=== PATIENT | male | born 1955 | race Caucasian/White ===

== ENCOUNTER 2019-02-24 05:46 | Emergency (ER) | payer OTHER | END 2019-02-24 09:18 | disposition home or self-care (01) | LOC: ED 05:46 ==

== ENCOUNTER 2020-10-30 06:12 | Observation (INO) | payer OTHER ==
[2020-10-30] MEDS ORDERED: Dextrose 5%-NS IV Solution 1000 ML 1,000 ML IV ONE (06:33)
[2020-10-30] MEDS ORDERED: Zofran 4 MG/2 ML VIAL IV ONE (06:39)
[2020-10-30] MEDS ORDERED: Zofran 4 MG/2 ML VIAL ONE (06:40)
--- NOTE | 2020-10-30 06:54 | ERPHSYRPT ---
- History of Present Illness Source: patient, family, EMS Exam Limitations: clinical condition Patient Subjective Stated Complaint: per , pt was sitting on the side of the bed and fell, and hit the back of his head. pt's blood sugar was low 60's upon ems arrival and pt was not responding as normal. Triage Nursing Assessment: pt awake, slow to answer questions. respirations nonlabored. skin cool and moist. pupils equal and reactive. follows directions. bilat upper and lower ext strength equal and wnl. 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 but is slow to respond.) Baseline/Normal Cognition: alert oriented x 3 Current Cognition: poor alertness Baseline Gait: walks w/o assistance Associated Symptoms: confusion, loss of consciousness, seizures (Patient may be postictal secondary to suspected seizure) Hx Tetanus, Diphtheria Vaccination/Date Given: Yes Hx Influenza Vaccination/Date Given: Yes Hx Pneumococcal Vaccination/Date Given: Yes Immunizations Up to Date: Yes <ANTONIO HINDS - Last Filed: 10/30/20 06:48> <SAGE VERGARA - Last Filed: 10/30/20 09:46> - History of Present Illness Time Seen by Provider: 10/30/20 06:20 Physician History: 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 EMS arrived to find his blood sugar in the 60s they gave him an amp of D50 and rates his blood sugar to 226. However he still continues to be somewhat slow to respond although he will follow directions. He has had similar episodes in the past. does report that he had an aneurysm while he was in college and she is concerned there may be a rebleed. (ANTONIO HINDS) Allergies/Adverse Reactions: linagliptin [From Tradjenta] Allergy (Verified 10/30/20 07:02) esomeprazole [From Nexium] Adverse Reaction (Verified 10/30/20 07:02) Diarrhea metformin Adverse Reaction (Verified 10/30/20 07:02) Diarrhea omeprazole Adverse Reaction (Verified 10/30/20 07:02) Diarrhea Home Medications: Famotidine 20 mg [Pepcid 20 MG] 20 mg PO BID 02/24/19 [History] Glimepiride 4 mg [Amaryl 4 mg] 4 mg PO DAILY 02/24/19 [History] Ibuprofen/Diphenhydramine Cit [Advil Pm Caplet] 1 tab PO HS 02/24/19 [History] Insulin Glargine,Hum.rec.anlog [Toujeo Solostar] 76 units SQ DAILY 02/24/19 [History] Rosuvastatin Calcium [Crestor] 10 mg PO DAILY 02/24/19 [History] Aspirin EC 81 mg [Ecotrin 81 mg] 81 mg PO DAILY 10/30/20 [History] Lisinopril 10 mg [Zestril 10 MG] 10 mg PO DAILY 10/30/20 [History] Travel Risk - International Travel Have you traveled outside of the country in past 3 weeks: No - Coronavirus Screening Are you exhibiting any of the following symptoms?: No Close contact with a COVID-19 positive Pt in past 14-21 Days: No - Vaccine Status Have you recieved a Covid-19 vaccination: Yes Inspector 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: 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 - Vaccination Dates Date of 2cond Vaccination (if applicable): 07/2020 <ANTONIO HINDS - Last Filed: 10/30/20 06:48> - Review of Systems All Other Systems: Unable due to condition <ANTONIO HINDS - Last Filed: 10/30/20 06:48> - Past Medical History Pertinent Past Medical History: Yes Neurological History: Other ENT History: No Pertinent History Cardiac History: Hypertension Respiratory History: No Pertinent History Endocrine Medical History: Diabetes Type II Musculoskeletal History: No Pertinent History GI Medical History: No Pertinent History History: No Pertinent History Psycho-Social History: No Pertinent History Male Reproductive Disorders: No Pertinent History Other Medical History: hx of brain aneurysm in college. 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 - Social History Smoking Status: Never smoker Exposure to second hand smoke: No Drug Use: none Patient Lives Alone: No <ANTONIO HINDS - Last Filed: 10/30/20 06:48> - Thomas Coma Scale Best Eye Response (Thomas): (3) open to voice Best Verbal Response (Thomas): (4) confused conversation Best Motor Response (Thomas): (6) obeys commands Thomas Total: 13 - Physical Exam General Appearance: mild distress, lethargy Eye Exam: bilateral eye: normal inspection, PERRL, EOMI Ears, Nose, Throat Exam: normal ENT inspection, moist mucous membranes Neck Exam: normal inspection, non-tender, supple Respiratory: normal breath sounds, lungs clear, airway intact, No respiratory distress Cardiovascular: regular rate/rhythm, No edema Gastrointestinal: soft, No tenderness, No distention Back Exam: normal inspection Extremity Exam: normal inspection, normal range of motion, No pedal edema Peripheral Pulses: carotid (R): 2+, carotid (L): 2+ Mental Status: alert, depressed affect, 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, No facial droop Motor/Sensory: No pronator drift (R), No pronator drift (L), No sensory deficit Skin Exam: normal color, warm, dry SpO2 Interpretation: normal SpO2: 98 O2 Delivery: Room Air <ANTONIO HINDS - Last Filed: 10/30/20 06:48> - Nursing Vital Signs Nursing Vital Signs: Initial Vital Signs Temperature 95.6 F 10/30/20 06:15 Pulse Rate 62 10/30/20 06:15 Respiratory Rate 18 10/30/20 06:15 Blood Pressure 165/72 10/30/20 06:15 O2 Sat by Pulse Oximetry 98 10/30/20 06:15 Pain Scale Pain Intensity 0 Ordered Tests: Active Orders 24 hr Category Date Time Status EKG-ER Only STAT Care 10/30/20 06:39 Active IV Insertion STAT Care 10/30/20 06:39 Active CHEST 1 VIEW (PORTABLE) Stat Exams 10/30/20 06:40 Completed HEAD WITHOUT CONTRAST [CT] Stat Exams 10/30/20 06:46 Completed AMYLASE Stat Lab 10/30/20 06:50 Completed CBC W DIFF Stat Lab 10/30/20 06:50 Completed CK (IN-HOUSE) [CK-Creatinine Phosphokinase] Stat Lab 10/30/20 06:50 Completed CMP Stat Lab 10/30/20 06:50 Completed Lactic Acid Stat Lab 10/30/20 06:55 Completed Lactic Acid Stat Lab 10/30/20 09:02 Completed POCT GLUCOSE Stat Lab 10/30/20 06:22 Completed POCT GLUCOSE Stat Lab 10/30/20 08:22 Completed TROPONIN Q3H Lab 10/30/20 06:50 Completed TROPONIN Q3H Lab 10/30/20 09:45 Ordered TROPONIN Q3H Lab 10/30/20 12:45 Ordered TROPONIN Q3H Lab 10/30/20 15:45 Ordered TROPONIN Q3H Lab 10/30/20 18:45 Ordered UA W/RFX UR CULTURE Stat Lab 10/30/20 09:23 Completed Transfer Order Routine Transfer 10/30/20 Ordered Medication Summary Generic Name Dose Route Start Last Admin Trade Name Freq PRN Reason Stop Dose Admin Dextrose/Sodium Chloride 1,000 mls @ 100 mls/hr 10/30/20 07:00 10/30/20 06:49 Dextrose 5%-Ns Iv Solution 1000 Ml IV 11/29/20 06:59 100 mls/hr .Q10H WATSON Administration Discontinued Medications Generic Name Dose Route Start Last Admin Trade Name Freq PRN Reason Stop Dose Admin Dextrose/Sodium Chloride Confirm 10/30/20 06:33 Dextrose 5%-Ns Iv Solution 1000 Ml Administered 10/30/20 06:34 Dose 1,000 mls @ ud IV .STK-MED ONE Ondansetron HCl Confirm 10/30/20 06:40 Zofran 4 Mg/2 Ml Vial Administered 10/30/20 06:41 Dose 4 mg .ROUTE .STK-MED ONE Ondansetron HCl 4 mg 10/30/20 06:39 10/30/20 06:49 Zofran 4 Mg/2 Ml Vial IV 10/30/20 06:40 4 mg STAT ONE Administration Lab/Rad Data: Laboratory Result Diagrams 10/30/20 06:50 10/30/20 06:50 Laboratory Results 10/30/20 10/30/20 10/30/20 Range/Units 09:23 09:02 08:22 WBC (4.0-10.5) K/mm3 RBC (4.1-5.6) M/mm3 Hgb (12.5-18.0) gm/dl Hct (42-50) % MCV (78-100) fl MCH (26-32) pg MCHC (32-36) g/dl RDW (11.5-14.0) % Plt Count (150-450) K/mm3 MPV (7.5-11.0) fl Gran % (36.0-66.0) % Eos # (Auto) (0-0.5) Absolute Lymphs (auto) (1.0-4.6) Absolute Monos (auto) (0.0-1.3) Lymphocytes % (24.0-44.0) % Monocytes % (0.0-12.0) % Eosinophils % (0.00-5.0) % Basophils % (0.0-0.4) % Absolute Granulocytes (1.4-6.9) Basophils # (0-0.4) Sodium (137-145) mmol/L Potassium (3.5-5.1) mmol/L Chloride (98-107) mmol/L Carbon Dioxide (22-30) mmol/L Anion Gap (5-15) MEQ/L BUN (9-20) mg/dL Creatinine (0.66-1.25) mg/dL Estimated GFR ML/MIN Glucose (74-106) mg/dL POC Glucometer 209 H (74 to 106) mg/dL Lactic Acid 1.3 (0.4-2.0) Calcium (8.4-10.2) mg/dL Total Bilirubin (0.2-1.3) mg/dL AST (17-59) U/L ALT (0-50) U/L Alkaline Phosphatase (38-126) U/L Creatine Kinase (55-170) U/L Troponin I (0.000-0.034) ng/mL Serum Total Protein (6.3-8.2) g/dL Albumin (3.5-5.0) g/dL Amylase (30-110) U/L Urine Color YELLOW (YELLOW) Urine Appearance CLEAR (CLEAR) Urine pH 6.0 (5-6) Ur Specific [place] 1.017 (1.005-1.025) Urine Protein NEGATIVE (Negative) Urine Ketones NEGATIVE (NEGATIVE) Urine Blood NEGATIVE (0-5) Nabor/ul Urine Nitrite NEGATIVE (NEGATIVE) Urine Bilirubin NEGATIVE (NEGATIVE) Urine Urobilinogen NEGATIVE (0-1) mg/dL Ur Leukocyte Esterase NEGATIVE (NEGATIVE) Urine WBC (Auto) NONE (0-5) /HPF Urine RBC (Auto) NONE SEEN (0-2) /HPF U Epithel Cells (Auto) NONE (FEW) /HPF Urine Bacteria (Auto) NONE (NEGATIVE) /HPF Urine Culture Reflexed NO (NO) Urine Glucose >=500 (NEGATIVE) mg/dL 10/30/20 10/30/20 10/30/20 Range/Units 06:55 06:50 06:50 WBC (4.0-10.5) K/mm3 RBC (4.1-5.6) M/mm3 Hgb (12.5-18.0) gm/dl Hct (42-50) % MCV (78-100) fl MCH (26-32) pg MCHC (32-36) g/dl RDW (11.5-14.0) % Plt Count (150-450) K/mm3 MPV (7.5-11.0) fl Gran % (36.0-66.0) % Eos # (Auto) (0-0.5) Absolute Lymphs (auto) (1.0-4.6) Absolute Monos (auto) (0.0-1.3) Lymphocytes % (24.0-44.0) % Monocytes % (0.0-12.0) % Eosinophils % (0.00-5.0) % Basophils % (0.0-0.4) % Absolute Granulocytes (1.4-6.9) Basophils # (0-0.4) Sodium (137-145) mmol/L Potassium (3.5-5.1) mmol/L Chloride (98-107) mmol/L Carbon Dioxide (22-30) mmol/L Anion Gap (5-15) MEQ/L BUN (9-20) mg/dL Creatinine (0.66-1.25) mg/dL Estimated GFR ML/MIN Glucose (74-106) mg/dL POC Glucometer (74 to 106) mg/dL Lactic Acid 2.6 H (0.4-2.0) Calcium (8.4-10.2) mg/dL Total Bilirubin (0.2-1.3) mg/dL AST (17-59) U/L ALT (0-50) U/L Alkaline Phosphatase (38-126) U/L Creatine Kinase 137 (55-170) U/L Troponin I < 0.012 (0.000-0.034) ng/mL Serum Total Protein (6.3-8.2) g/dL Albumin (3.5-5.0) g/dL Amylase (30-110) U/L Urine Color (YELLOW) Urine Appearance (CLEAR) Urine pH (5-6) Ur Specific [place] (1.005-1.025) Urine Protein (Negative) Urine Ketones (NEGATIVE) Urine Blood (0-5) Nabor/ul Urine Nitrite (NEGATIVE) Urine Bilirubin (NEGATIVE) Urine Urobilinogen (0-1) mg/dL Ur Leukocyte Esterase (NEGATIVE) Urine WBC (Auto) (0-5) /HPF Urine RBC (Auto) (0-2) /HPF U Epithel Cells (Auto) (FEW) /HPF Urine Bacteria (Auto) (NEGATIVE) /HPF Urine Culture Reflexed (NO) Urine Glucose (NEGATIVE) mg/dL 10/30/20 10/30/20 10/30/20 Range/Units 06:50 06:50 06:22 WBC 6.8 (4.0-10.5) K/mm3 RBC 4.43 (4.1-5.6) M/mm3 Hgb 14.4 (12.5-18.0) gm/dl Hct 41.1 L (42-50) % MCV 92.8 (78-100) fl MCH 32.5 H (26-32) pg MCHC 35.0 (32-36) g/dl RDW 11.9 (11.5-14.0) % Plt Count 213 (150-450) K/mm3 MPV 9.8 (7.5-11.0) fl Gran % 59.1 (36.0-66.0) % Eos # (Auto) 0.14 (0-0.5) Absolute Lymphs (auto) 2.05 (1.0-4.6) Absolute Monos (auto) 0.59 (0.0-1.3) Lymphocytes % 30.0 (24.0-44.0) % Monocytes % 8.6 (0.0-12.0) % Eosinophils % 2.0 (0.00-5.0) % Basophils % 0.3 (0.0-0.4) % Absolute Granulocytes 4.03 (1.4-6.9) Basophils # 0.02 (0-0.4) Sodium 136 L (137-145) mmol/L Potassium 4.5 (3.5-5.1) mmol/L Chloride 101 (98-107) mmol/L Carbon Dioxide 27 (22-30) mmol/L Anion Gap 12.3 (5-15) MEQ/L BUN 24 H (9-20) mg/dL Creatinine 1.02 (0.66-1.25) mg/dL Estimated GFR > 60.0 ML/MIN Glucose 164 H (74-106) mg/dL POC Glucometer 163 H (74 to 106) mg/dL Lactic Acid (0.4-2.0) Calcium 9.2 (8.4-10.2) mg/dL Total Bilirubin 0.60 (0.2-1.3) mg/dL AST 29 (17-59) U/L ALT 28 (0-50) U/L Alkaline Phosphatase 26 L (38-126) U/L Creatine Kinase (55-170) U/L Troponin I (0.000-0.034) ng/mL Serum Total Protein 7.0 (6.3-8.2) g/dL Albumin 4.1 (3.5-5.0) g/dL Amylase 37 (30-110) U/L Urine Color (YELLOW) Urine Appearance (CLEAR) Urine pH (5-6) Ur Specific [place] (1.005-1.025) Urine Protein (Negative) Urine Ketones (NEGATIVE) Urine Blood (0-5) Nabor/ul Urine Nitrite (NEGATIVE) Urine Bilirubin (NEGATIVE) Urine Urobilinogen (0-1) mg/dL Ur Leukocyte Esterase (NEGATIVE) Urine WBC (Auto) (0-5) /HPF Urine RBC (Auto) (0-2) /HPF U Epithel Cells (Auto) (FEW) /HPF Urine Bacteria (Auto) (NEGATIVE) /HPF Urine Culture Reflexed (NO) Urine Glucose (NEGATIVE) mg/dL - Progress Progress: improved, re-examined Counseled pt/family regarding: lab results, diagnosis, rad results <SAGE VERGARA - Last Filed: 10/30/20 09:46> - Progress Progress Note: 10/30/20 08:47 CAT scan of the head without contrast shows a left frontal lobe tiny petechial hemorrhage present. No midline shift. 10/30/20 09:04 Medical decision making: I believe the patient will be best served by monitoring him neurologically and his blood sugar in the hospital. I believe we can place this patient in observation. The patient specifically requests Dr. Bermudez to place him in observation if possible. I have placed a call into Dr. Bermudez and awaiting his return call. Patient has symptomatically improved during his stay in the emergency department. (SAGE VERGARA) <MINHGREGANTONIO - Last Filed: 10/30/20 06:48> - Departure Departure Disposition: Observation Critical Care Time: No <SAGE VERGARA - Last Filed: 10/30/20 09:46> - Departure Clinical Impression: Head injury, Fall with injury, Hypoglycemia, Cerebral contusion Condition: Stable Referrals: GILLIAN CLARK [NON-STAFF PHY W/O PRIVILEGES] -
[2020-10-30] MEDS ORDERED: Dextrose 5%-NS IV Solution 1000 ML 1,000 ML IV SCH (07:00)
[2020-10-30 07:01] LABS: Absolute Neutrophil Ct (ANC) 4.03 (1.4-6.9); BASOPHIL % 0.3 % (0.0-0.4); Basophil (Absolute #) 0.02 (0-0.4); Eosinophil (Absolute #) 0.14 (0-0.5); Hematocrit 41.1 % (42-50); Hemoglobin 14.4 gm/dl (12.5-18.0); Lymphocyte (Absolute #) 2.05 (1.0-4.6); Mean Cell Volume 92.8 fl (78-100); Mean Corpuscular Hemoglobin 32.5 pg (26-32); Mean Platelet Volume 9.8 fl (7.5-11.0); Monocyte (Absolute #) 0.59 (0.0-1.3); Monocytes % 8.6 % (0.0-12.0); Neutrophil % 59.1 % (36.0-66.0); Platelet Count 213 K/mm3 (150-450); Red Blood Count 4.43 M/mm3 (4.1-5.6); Red Cell Distribution Width 11.9 % (11.5-14.0); White Blood Count 6.8 K/mm3 (4.0-10.5)
[2020-10-30 07:14] LABS: ALBUMIN 4.1 g/dL (3.5-5.0); ALKALINE PHOSPHATASE 26 U/L (38-126); AMYLASE 37 U/L (30-110); ANION GAP 12.3 MEQ/L (5-15); BLOOD UREA NITROGEN 24 mg/dL (9-20); CHLORIDE 101 mmol/L (98-107); Calcium 9.2 mg/dL (8.4-10.2); Carbon Dioxide 27 mmol/L (22-30); Creatinine 1 1.02 mg/dL (0.66-1.25); EST GLOMERULAR FILTRATION RATE > 60.0 ML/MIN; Glucose 164 mg/dL (74-106); Potassium 4.5 mmol/L (3.5-5.1); SGOT/AST 29 U/L (17-59); SGPT/ALT 28 U/L (0-50); SODIUM 136 mmol/L (137-145)
--- NOTE | 2020-10-30 08:44 | XRAY ---
Indication: Pain. Comparison: None Portable apical lordotic chest slightly underinflated with incidental right hemidiaphragm elevation, minimal bibasilar subsegmental atelectasis/scarring, right hemidiaphragm elevation, and a few tiny calcified granulomas. No focal infiltrate, consolidation, or large effusion. Heart not enlarged. Bony thorax intact with minimal degenerative changes. Impression: Nonacute underinflated chest with chronic features.
--- NOTE | 2020-10-30 08:52 | XRAY ---
Indication: Posterior head injury following fall. Acute mental status change/loss of consciousness. Seizure. History brain aneurysm and hypertension. Multiple contiguous axial images obtained through the head without contrast. Comparison: February 24, 2019. There remains age-appropriate global atrophy and old left frontal lobe infarct. Left frontal lobe demonstrates new tiny cortical/subcortical petechial hemorrhage favoring contusion. No abnormal extra-axial fluid collection or mass effect. Fourth ventricle is midline without hydrocephalus. Leggett-white matter differentiation preserved. Bony calvarium intact. Visualized paranasal sinuses clear. There remains minimal opacification of both mastoid air cells. Impression: 1. New tiny left frontal lobe contusion with petechial parenchymal hemorrhage. 2. Grossly stable atrophy, old left frontal infarct, and partial opacification both mastoid air cells. Comment: Telephone report given to Dr. Greco at 0844 hrs on April 01, 2021.
[2020-10-30 09:40] LABS: Appearance CLEAR (CLEAR); Bilirubin NEGATIVE (NEGATIVE); Blood NEGATIVE Ery/ul (0-5); Glucose >=500 mg/dL (NEGATIVE); Ketones NEGATIVE (NEGATIVE); Leukocyte Esterase NEGATIVE (NEGATIVE); Nitrite NEGATIVE (NEGATIVE); Protein,Urine Dip NEGATIVE (Negative); Specific Gravity 1.017 (1.005-1.025); Urobilinogen NEGATIVE mg/dL (0-1)
[2020-10-30 09:42] LABS: RBC NONE SEEN /HPF (0-2)
[2020-10-30 10:23] LABS: INFLUENZA A NEGATIVE (NEGATIVE); INFLUENZA B NEGATIVE (NEGATIVE); RESPIRATORY SYNCTIAL VIRUS NEGATIVE (Negative)
[2020-10-30] MEDS ORDERED: HUMULIN R SQ PRN (10:43)
[2020-10-30] MEDS ORDERED: Zofran 4 MG/2 ML VIAL IV PRN (10:43)
[2020-10-30] MEDS: TYLENOL 325 MG PO PRN ×3 (12:33→22:33)
[2020-10-30] MEDS: Vitamin C 500 MG PO SCH (12:33)
[2020-10-30] MEDS: HUMALOG SQ PRN ×3 (12:34→22:29)
[2020-10-30] MEDS: Flomax 0.4 MG PO SCH ×2 (12:34→22:28)
[2020-10-30] MEDS: Pepcid 20 MG PO SCH ×2 (12:34→22:28)
[2020-10-30] MEDS: Sodium Chloride 0.9% 1000 ML 1,000 ML IV SCH (13:54)
[2020-10-31] MEDS: Sodium Chloride 0.9% 1000 ML 1,000 ML IV SCH (02:46)
[2020-10-31 05:09] LABS: Absolute Neutrophil Ct (ANC) 6.03 (1.4-6.9); BASOPHIL % 0.2 % (0.0-0.4); Basophil (Absolute #) 0.02 (0-0.4); Eosinophil % 1.2 % (0.00-5.0); Eosinophil (Absolute #) 0.12 (0-0.5); Hemoglobin 13.5 gm/dl (12.5-18.0); Lymphocyte (Absolute #) 2.84 (1.0-4.6); Lymphocytes % 28.4 % (24.0-44.0); Mean Cell Volume 92.9 fl (78-100); Mean Corpuscular Hemoglobin 32.1 pg (26-32); Mean Corpuscular Hgb Concent. 34.6 g/dl (32-36); Neutrophil % 60.2 % (36.0-66.0); Platelet Count 207 K/mm3 (150-450); Red Cell Distribution Width 11.7 % (11.5-14.0)
[2020-10-31] MEDS: TYLENOL 325 MG PO PRN ×2 (05:10→09:30)
[2020-10-31 05:22] LABS: ALBUMIN 3.6 g/dL (3.5-5.0); ALKALINE PHOSPHATASE 24 U/L (38-126); ANION GAP 9.3 MEQ/L (5-15); BLOOD UREA NITROGEN 20 mg/dL (9-20); CHLORIDE 103 mmol/L (98-107); Calcium 8.5 mg/dL (8.4-10.2); Carbon Dioxide 25 mmol/L (22-30); Creatinine 1 0.75 mg/dL (0.66-1.25); EST GLOMERULAR FILTRATION RATE > 60.0 ML/MIN; Glucose 133 mg/dL (74-106); SGOT/AST 29 U/L (17-59); SGPT/ALT 24 U/L (0-50); SODIUM 133 mmol/L (137-145); Total Protein 6.4 g/dL (6.3-8.2)
[2020-10-31] MEDS: HUMALOG SQ PRN (08:58)
[2020-10-31] MEDS: Pepcid 20 MG PO SCH (08:58)
[2020-10-31] MEDS: Vitamin C 500 MG PO SCH (08:58)
[2020-10-31] MEDS: Flomax 0.4 MG PO SCH (08:58)
[2020-10-31] MEDS ORDERED: Lantus Insulin SQ SCH (10:00)
[2020-10-31] MEDS ORDERED: Zestril 10 MG PO SCH (10:00)
[2020-10-31] MEDS ORDERED: Zocor 10MG PO SCH (10:00)
[2020-10-31] MEDS ORDERED: AMARYL 4 MG PO SCH (10:00)
[2020-10-31 11:43] VITALS: BP 152/65; PULSE 60; O2SAT 93
--- NOTE | 2020-10-31 12:37 | SSS ---
DISCHARGE DIAGNOSES: 1) HYPOGLYCEMIA. 2) CONCUSSION. 3) DIABETES MELLITUS TYPE II. HISTORY: The patient is a 65 year-old white male patient who was getting up for his daily routine when he sat up on the side of the bed. He apparently had passed out and turned a summersault and hit his head, according to his . The patient was found to have a blood sugar in the 60's upon arrival of EMS. The patient was brought to the emergency room for evaluation and management where a CT scan showed him to have a tiny left frontal lobe contusion with petechial parenchymal hemorrhage, grossly stable atrophy, old left frontal infarct, and partial opacification of both mastoid air cells. The patient also had a chest x-ray which revealed nonacute underinflated chest with chronic features. MEDICATIONS: The patient takes famotidine 20 mg b.i.d., Amaryl 4 mg a day, insulin Toujeo 76 units daily, Crestor 10 mg a day, aspirin 81 mg a day, lisinopril 10 mg a day. ALLERGIES: TRADJENTA. NEXIUM. METFORMIN. OMEPRAZOLE. PHYSICAL EXAMINATION: The patient's vital signs on admission showed temperature to be 95.6F, pulse 62, respiratory rate 18 and blood pressure 165/72. O2 saturation was 98%. HEENT: Essentially normocephalic, mild contusion noted. Pupils equal round reactive to light. Extraocular movements intact. Oropharynx is pink and moist. NECK: Supple without lymphadenopathy, thyromegaly or JVD. CHEST: Clear to auscultation. HEART: Regular rate and rhythm. ABDOMEN: Soft. No palpable masses. EXTREMITIES: Without cyanosis, clubbing or edema. NEUROLOGIC: The patient is alert and oriented x3 with no focal deficits noted. LAB DATA AND TESTS: The patient's laboratory studies otherwise showed his lactic acid to slightly high at 2.6 initially. His white count was 6,800, hemoglobin 14.4, PLT count 213,000. CPK 137. Glucose 164 by the time the lab checked him. BUN 24, creatinine 1.02. Electrolytes were normal. Liver enzymes were normal. Troponins less than 0.012. UA was essentially normal other than sugar present in the urine. Repeat lactic acid was 1.3. COVID, influenza, RSV were all negative. A1C was 9.34. HOSPITAL COURSE: The patient was admitted to the hospital, given IV fluids at 75 cc/hour for gentle hydration. He was monitored overnight with complaints of a bit of a headache but otherwise was doing okay. At this time we are going to check his ambulation abilities to make sure he is stable on his feet and afterwards discharge him home on his usual home medications with the exception of aspirin. The patient was noted to have a right bundle branch block on his 12 lead EKG and with his diabetes we suggested getting him a cardiac score to get an idea of what his calcification is like. 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 He will continue his other home medications for his diabetes and monitor his sugars each morning fasting.
== END 2020-10-31 13:30 | disposition home or self-care (01) ==
LOC: ED 06:12 → MED SURG 10:41
PROVIDERS: ADMIT Family Medicine; ATTEND Family Medicine
DX: E11.649 Type 2 diabetes mellitus with hypoglycemia without coma (principal); S06.0X1A Concussion with loss of consciousness of 30 minutes or less, initial encounter; S06.321A Contusion and laceration of left cerebrum with loss of consciousness of 30 minutes or less, initial encounter; W06.XXXA Fall from bed, initial encounter; E11.9 Type 2 diabetes mellitus without complications; I10 Essential (primary) hypertension; I45.10 Unspecified right bundle-branch block; Z79.899 Other long term (current) drug therapy; Z20.828 Contact with and (suspected) exposure to other viral communicable diseases
CPT/HCPCS: 0241U; 36000; 36415; 70450; 71045; 80053; 81001; 82150; 82550; 82947; 83036; 83605; 84484; 85025; 93005; 93268; 96365; 96366; 96374; 99285; G0378; J1817; J2405; A9270-GY

== ENCOUNTER 2020-11-03 06:45 | Emergency (ER) | payer OTHER, MEDICARE ==
[2020-11-03] MEDS ORDERED: Sodium Chloride 0.9% 1000 ML 1,000 ML IV STA (07:21)
[2020-11-03] MEDS ORDERED: Sodium Chloride 0.9% 1000 ML 1,000 ML ONE (07:27)
[2020-11-03] MEDS ORDERED: Zofran 4 MG/2 ML VIAL ONE (07:35)
[2020-11-03] MEDS ORDERED: Zofran 4 MG/2 ML VIAL IV ONE (07:35)
[2020-11-03 07:55] LABS: Absolute Neutrophil Ct (ANC) 9.45 (1.4-6.9); BASOPHIL % 0.1 % (0.0-0.4); Basophil (Absolute #) 0.01 (0-0.4); Eosinophil % 0.5 % (0.00-5.0); Eosinophil (Absolute #) 0.06 (0-0.5); Hematocrit 41.9 % (42-50); Hemoglobin 15.1 gm/dl (12.5-18.0); Lymphocytes % 11.9 % (24.0-44.0); Mean Cell Volume 90.1 fl (78-100); Mean Corpuscular Hemoglobin 32.5 pg (26-32); Mean Platelet Volume 9.7 fl (7.5-11.0); Monocyte (Absolute #) 0.86 (0.0-1.3); Monocytes % 7.3 % (0.0-12.0); Neutrophil % 80.2 % (36.0-66.0); Platelet Count 267 K/mm3 (150-450); Red Blood Count 4.65 M/mm3 (4.1-5.6); Red Cell Distribution Width 11.8 % (11.5-14.0); White Blood Count 11.8 K/mm3 (4.0-10.5)
--- NOTE | 2020-11-03 07:58 | ERPHSYRPT ---
- History of Present Illness Time Seen by Provider: 11/03/20 07:10 Source: patient, family, EMS Exam Limitations: no limitations Patient Subjective Stated Complaint: pt states, "I was sitting on the toilet and unable to go to the bathroom so I stood up to pee to finish and started getting dizzy and went to sit down on the toilet and passed out". Triage Nursing Assessment: pt arrived via EMS, pt states, "I was sitting on the toilet and unable to go to the bathroom and I stood up to pee to finish and started getting dizzy and went to sit down on the toilet and passed out". Pt had fallen off the toilet and was between the toilet and sink so states, "he could've banged his head but doesn't believe he hit it hard". EMS states, "he appeared to be having focal seizure and staring off but became alert". Pt states, "My head hurt all day yesterday but is not hurting now". Pt had second CT test performed yesterday and it showed some improvement". Pt is alert and oriented x3, at bedside. Physician History: 65 years old male with history of hypertension, diabetes mellitus, BPH, GERD, recent fall with head injury causing small petechial hemorrhages in the frontal lobe presented in the ER with chief complaint of syncopal episode via EMS. Per report patient was sitting on the toilet trying to go and then stood up to finish urinating, felt dizzy/lightheaded and collapsed. Per he was out for less than a minute with full regain of consciousness immediately with no confusion. Questionable history of hitting his head again today. Patient feels fatigued and tired afterwards. Patient also reported he felt sweaty before the episode and nauseated afterwards with few episodes of nonprojectile, nonbilious vomiting with no hematemesis. He denies any chest pain or palpitations associated with current episode before or after. Denies any abdominal pain. Denies any focal numbness tingling or weakness. No blurry vision, difficulty speech reported. Witnessed: unwitnessed Prior Episodes: single episode today Timing/Duration: today, resolved prior to arrival, sudden, improved Precipitating Factors: lightheadedness Context: standing Loss of Consciousness: brief (seconds) Charcter of event(s): collapsed, became unresponsive Allergies/Adverse Reactions: linagliptin [From Tradjenta] Allergy (Verified 11/03/20 07:04) esomeprazole [From Nexium] Adverse Reaction (Verified 11/03/20 07:04) Diarrhea metformin Adverse Reaction (Verified 11/03/20 07:04) Diarrhea omeprazole Adverse Reaction (Verified 11/03/20 07:04) Diarrhea Home Medications: Famotidine 20 mg [Pepcid 20 MG] 20 mg PO BID 02/24/19 [History] Glimepiride 4 mg [Amaryl 4 mg] 4 mg PO DAILY 02/24/19 [History] Ibuprofen/Diphenhydramine Cit [Advil Pm Caplet] 1 tab PO HS 02/24/19 [History] Rosuvastatin Calcium [Crestor] 10 mg PO DAILY 02/24/19 [History] Ascorbic Acid 500 mg [Vitamin C 500 MG] 500 mg PO DAILY 10/30/20 [History] Lisinopril 10 mg [Zestril 10 MG] 10 mg PO DAILY 10/30/20 [History] Tamsulosin HCl 0.4 mg [Flomax 0.4 MG] 0.4 mg PO BID 10/30/20 [History] Spironolact/Hydrochlorothiazid [Spironolactone-Hctz 25-25 Tab] 1 tab PO DAILY 10/31/20 [History] Acetaminophen [Tylenol Extra Strength] 1,000 mg PO QID PRN 11/03/20 [History] Insulin Glargine,Hum.rec.anlog [Toujeo Solostar] 60 units SQ DAILY 11/03/20 [History] Hx Tetanus, Diphtheria Vaccination/Date Given: Yes Hx Influenza Vaccination/Date Given: Yes Hx Pneumococcal Vaccination/Date Given: No Immunizations Up to Date: Yes Travel Risk - International Travel Have you traveled outside of the country in past 3 weeks: No - Coronavirus Screening Are you exhibiting any of the following symptoms?: No Close contact with a COVID-19 positive Pt in past 14-21 Days: No - Vaccine Status Have you recieved a Covid-19 vaccination: Yes [employer] - Vaccination Dates Date of 2cond Vaccination (if applicable): 07/26/20 - Past Medical History Pertinent Past Medical History: Yes Neurological History: Stroke, Other ENT History: No Pertinent History Cardiac History: Hypertension Respiratory History: No Pertinent History Endocrine Medical History: Diabetes Type II Musculoskeletal History: No Pertinent History GI Medical History: Diverticulosis History: No Pertinent History Psycho-Social History: No Pertinent History Male Reproductive Disorders: Prostate Problems Other Medical History: hx of stroke in college. 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 - Social History Smoking Status: Never smoker Exposure to second hand smoke: No Drug Use: none Patient Lives Alone: No - Review of Systems Constitutional: Fatigue, Weakness Eyes: No Symptoms Ears, Nose, & Throat: No Symptoms Respiratory: No Symptoms Cardiac: No Symptoms Abdominal/Gastrointestinal: Nausea, Vomiting Genitourinary Symptoms: No Symptoms Musculoskeletal: No Symptoms Skin: No Symptoms Neurological: Dizziness Psychological: No Symptoms Endocrine: No Symptoms Hematologic/Lymphatic: No Symptoms Immunological/Allergic: No Symptoms Physical Exam - Nursing Vital Signs Nursing Vital Signs: Initial Vital Signs Temperature 95.1 F 11/03/20 06:51 Pulse Rate 64 11/03/20 06:51 Respiratory Rate 18 11/03/20 06:51 Blood Pressure 149/77 11/03/20 06:51 O2 Sat by Pulse Oximetry 95 11/03/20 06:51 Pain Scale Pain Intensity 0 - [place] Coma Scale Best Eye Response (Thomas): (4) open spontaneously Best Verbal Response (Thomas): (5) oriented Best Motor Response ([place]): (6) obeys commands Thomas Total: 15 - Physical Exam General Appearance: no apparent distress, alert Eye Exam: bilateral eye: normal inspection, PERRL, EOMI Ears, Nose, Throat Exam: normal ENT inspection, TMs normal, pharynx normal, moist mucous membranes Neck Exam: normal inspection, non-tender, supple, full range of motion Respiratory: normal breath sounds, lungs clear Cardiovascular: regular rate/rhythm, normal heart sounds Gastrointestinal: soft, normal bowel sounds, No tenderness Back Exam: normal inspection, normal range of motion Extremity Exam: normal inspection, normal range of motion, pelvis stable Mental Status: alert, oriented x 3, 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 Exam: normal hearing, normal speech, PERRL Coordination/Gait: normal finger to nose, normal cerebellar function Motor/Sensory: no motor deficit, no sensory deficit, no pronator drift, negative Babinski's sign DTR: bicep (R): 2+, bicep (L): 2+, tricep (R): 2+, tricep (L): 2+, knee (R): 2+, knee (L): 2+ Skin Exam: normal color SpO2 Interpretation: normal SpO2: 95 O2 Delivery: Room Air - Course EKG Interpreted by Me: RATE (62), Sinus Rhythm, NORMAL AXIS, NORMAL INTERVALS, Right Bundle Branch Block Ordered Tests: Active Orders 24 hr Category Date Time Status Hog Stomach Preparer STAT Care 11/03/20 07:22 Active EKG-ER Only STAT Care 11/03/20 07:21 Active IV Insertion STAT Care 11/03/20 07:21 Active Orthostatic Vital Signs STAT Care 11/03/20 07:21 Active POCT Glucose Check STAT Care 11/03/20 07:21 Active CHEST 1 VIEW (PORTABLE) Stat Exams 11/03/20 07:22 Completed HEAD WITHOUT CONTRAST [CT] Stat Exams 11/03/20 07:22 Completed CBC W DIFF Stat Lab 11/03/20 07:40 Completed CMP Stat Lab 11/03/20 07:40 Completed LIPASE Stat Lab 11/03/20 07:40 Completed Lactic Acid Stat Lab 11/03/20 07:45 Completed MAGNESIUM Stat Lab 11/03/20 07:40 Completed TROPONIN Q3H Lab 11/03/20 07:40 Completed TROPONIN Q3H Lab 11/03/20 10:30 Ordered TROPONIN Q3H Lab 11/03/20 13:30 Ordered TROPONIN Q3H Lab 11/03/20 16:30 Ordered TROPONIN Q3H Lab 11/03/20 19:30 Ordered TROPONIN Q3H Lab 11/03/20 22:30 Ordered UA W/RFX UR CULTURE Stat Lab 11/03/20 07:22 Ordered Medication Summary Discontinued Medications Generic Name Dose Route Start Last Admin Trade Name Freq PRN Reason Stop Dose Admin Sodium Chloride 1,000 mls @ 999 mls/hr 11/03/20 07:21 11/03/20 07:30 Sodium Chloride 0.9% 1000 Ml IV 11/03/20 08:21 999 mls/hr .Q1H1M STA Administration Sodium Chloride Confirm 11/03/20 07:27 Sodium Chloride 0.9% 1000 Ml Administered 11/03/20 07:28 Dose 1,000 mls @ ud .ROUTE .STK-MED ONE Ondansetron HCl 4 mg 11/03/20 07:35 11/03/20 07:39 Zofran 4 Mg/2 Ml Vial IV 11/03/20 07:36 4 mg STAT ONE Administration Ondansetron HCl Confirm 11/03/20 07:35 Zofran 4 Mg/2 Ml Vial Administered 11/03/20 07:36 Dose 4 mg .ROUTE .STK-MED ONE Lab/Rad Data: Laboratory Result Diagrams 11/03/20 07:40 11/03/20 07:40 Laboratory Results 11/03/20 11/03/20 11/03/20 Range/Units 07:45 07:40 07:40 WBC (4.0-10.5) K/mm3 RBC (4.1-5.6) M/mm3 Hgb (12.5-18.0) gm/dl Hct (42-50) % MCV (78-100) fl MCH (26-32) pg MCHC (32-36) g/dl RDW (11.5-14.0) % Plt Count (150-450) K/mm3 MPV (7.5-11.0) fl Gran % (36.0-66.0) % Eos # (Auto) (0-0.5) Absolute Lymphs (auto) (1.0-4.6) Absolute Monos (auto) (0.0-1.3) Lymphocytes % (24.0-44.0) % Monocytes % (0.0-12.0) % Eosinophils % (0.00-5.0) % Basophils % (0.0-0.4) % Absolute Granulocytes (1.4-6.9) Basophils # (0-0.4) Sodium (137-145) mmol/L Potassium (3.5-5.1) mmol/L Chloride (98-107) mmol/L Carbon Dioxide (22-30) mmol/L Anion Gap (5-15) MEQ/L BUN (9-20) mg/dL Creatinine (0.66-1.25) mg/dL Estimated GFR ML/MIN Glucose (74-106) mg/dL Lactic Acid 2.2 H (0.4-2.0) Calcium (8.4-10.2) mg/dL Magnesium (1.6-2.3) mg/dL Total Bilirubin (0.2-1.3) mg/dL AST (17-59) U/L ALT (0-50) U/L Alkaline Phosphatase (38-126) U/L Troponin I < 0.012 (0.000-0.034) ng/mL Serum Total Protein (6.3-8.2) g/dL Albumin (3.5-5.0) g/dL Lipase 21 L (23-300) U/L 11/03/20 11/03/20 11/03/20 Range/Units 07:40 07:40 07:40 WBC 11.8 H (4.0-10.5) K/mm3 RBC 4.65 (4.1-5.6) M/mm3 Hgb 15.1 (12.5-18.0) gm/dl Hct 41.9 L (42-50) % MCV 90.1 (78-100) fl MCH 32.5 H (26-32) pg MCHC 36.0 (32-36) g/dl RDW 11.8 (11.5-14.0) % Plt Count 267 (150-450) K/mm3 MPV 9.7 (7.5-11.0) fl Gran % 80.2 H (36.0-66.0) % Eos # (Auto) 0.06 (0-0.5) Absolute Lymphs (auto) 1.40 (1.0-4.6) Absolute Monos (auto) 0.86 (0.0-1.3) Lymphocytes % 11.9 L (24.0-44.0) % Monocytes % 7.3 (0.0-12.0) % Eosinophils % 0.5 (0.00-5.0) % Basophils % 0.1 (0.0-0.4) % Absolute Granulocytes 9.45 H (1.4-6.9) Basophils # 0.01 (0-0.4) Sodium 130 L (137-145) mmol/L Potassium 4.1 (3.5-5.1) mmol/L Chloride 95 L (98-107) mmol/L Carbon Dioxide 25 (22-30) mmol/L Anion Gap 14.0 (5-15) MEQ/L BUN 18 (9-20) mg/dL Creatinine 0.85 (0.66-1.25) mg/dL Estimated GFR > 60.0 ML/MIN Glucose 290 H (74-106) mg/dL Lactic Acid (0.4-2.0) Calcium 9.2 (8.4-10.2) mg/dL Magnesium 2.0 (1.6-2.3) mg/dL Total Bilirubin 0.80 (0.2-1.3) mg/dL AST 27 (17-59) U/L ALT 25 (0-50) U/L Alkaline Phosphatase 32 L (38-126) U/L Troponin I (0.000-0.034) ng/mL Serum Total Protein 7.5 (6.3-8.2) g/dL Albumin 4.4 (3.5-5.0) g/dL Lipase (23-300) U/L - Progress Progress Note: 11/03/20 08:47 65 years old is evaluated for syncopal episode with possible head injury. Patient is a nonfocal neuro exam. Patient is not hypoglycemic. I have obtained EKG which showed sinus rhythm with right bundle branch block but no acute ST elevations. CT head is obtained which showed right parietal subdural hematoma without midline shift or mass-effect. This is in addition to the left frontal petechial hemorrhage/contusion which was found on previous CAT scans few days a go. Patient is not complaining of any headache. Chest x-ray negative for any acute cardiopulmonary findings. Work-up otherwise showed mild hyponatremia and hyperglycemia with a lactate of 2.2, patient is given fluid bolus here. With this new subdural hematoma, I believe patient would benefit with transfer to facility with neurosurgery. [facility] transfer center is called. Plan discussed with family and patient who understand and agree with it. 11/03/20 09:01 Patient discussed with trauma surgery Dr. Jamil at [facility] and is accepted for transfer. Discussed with : Other Will see patient in: ED Counseled pt/family regarding: lab results, diagnosis, rad results - Departure Departure Disposition: Transfer Clinical Impression: Subdural hematoma, Syncope and collapse Condition: Good Critical Care Time: Yes Critical Care Time(excluding separately billable procedures): Critical 30-74 mins Referrals: [facility], [facility] [Primary Care Provider] -
[2020-11-03 08:01] LABS: ALBUMIN 4.4 g/dL (3.5-5.0); ALKALINE PHOSPHATASE 32 U/L (38-126); BLOOD UREA NITROGEN 18 mg/dL (9-20); CHLORIDE 95 mmol/L (98-107); Calcium 9.2 mg/dL (8.4-10.2); Carbon Dioxide 25 mmol/L (22-30); Creatinine 1 0.85 mg/dL (0.66-1.25); EST GLOMERULAR FILTRATION RATE > 60.0 ML/MIN; Glucose 290 mg/dL (74-106); Potassium 4.1 mmol/L (3.5-5.1); SGOT/AST 27 U/L (17-59); SGPT/ALT 25 U/L (0-50); SODIUM 130 mmol/L (137-145); Total Protein 7.5 g/dL (6.3-8.2)
--- NOTE | 2020-11-03 08:41 | XRAY ---
Indication: Syncope. Multiple contiguous axial images obtained through the head without contrast. Comparison: One day earlier. New small high right parietal subdural hematoma measuring 6 mm in thickness and 2.8 cm in length without mass effect/midline shifting. Remaining brain unchanged again demonstrating age-appropriate global atrophy, minimal left frontal lobe contusion, and old left frontal lobe infarct. Fourth ventricle is midline without hydrocephalus. [place]-white matter differentiation preserved. Bony calvarium intact. Impression: 1. New small right parietal subdural hematoma as detailed. 2. Stable left frontal lobe contusion, old left frontal lobe infarct, and age-related atrophy. Comment: Telephone report given to Dr. Qureshi at 0834 hrs. on November 03, 2020.
--- NOTE | 2020-11-03 08:42 | XRAY ---
Indication: Syncope. Comparison: October 30, 2020. Portable chest again demonstrates chronic right hemidiaphragm elevation and a few tiny right lung calcified granulomas. Remaining heart and lungs unremarkable. No new/acute findings.
[2020-11-03 09:30] VITALS: BP 163/74; PULSE 62; O2SAT 98
== END 2020-11-03 09:45 | disposition short-term general hospital (02) ==
LOC: ED 06:45
DX: S06.5X9A Traumatic subdural hemorrhage with loss of consciousness of unspecified duration, initial encounter (principal); R55 Syncope and collapse; I10 Essential (primary) hypertension; E11.9 Type 2 diabetes mellitus without complications; Z79.899 Other long term (current) drug therapy
CPT/HCPCS: 36000; 36415; 70450; 71045; 80053; 83605; 83690; 83735; 84484; 85025; 93005; 93041; 96360; 96374; 99285; 99291; J2405

== ENCOUNTER 2023-10-05 16:22 | Emergency (ER) | payer MEDICARE ==
--- NOTE | 2023-10-05 17:05 | ERPHSYRPT ---
- History of Present Illness Source: patient, family, EMS Exam Limitations: no limitations Hx Tetanus, Diphtheria Vaccination/Date Given: Yes Hx Influenza Vaccination/Date Given: Yes Hx Pneumococcal Vaccination/Date Given: No <RICO GOLDEN - Last Filed: 10/05/23 18:44> <NADEGE CAMARENA - Last Filed: 10/06/23 00:00> - History of Present Illness Time Seen by Provider: 10/05/23 16:24 Physician History: 68-year-old male with history of hypertension, hyperlipidemia, diabetes mellitus, coronary artery disease status post CABG postop day 10 from [facility], discharged from hospital 2 days ago presented in the ER with increasing shortness of breath and cough adductive of minimal clear yellow sputum. Patient reports having shortness of breath off-and-on since surgery, got better but since yesterday it is getting worse. Patient woke up this morning with moderate shortness of breath and later on he started to feel weak fatigued tired and kind of passed out. He checked his blood sugar it was in 80s. Later on blood sugar jumped in 200s. Patient is also having chills and shaking all day today. He has a temperature of 102 on presentation in the ER. Denies any chest pain, lower extremity swellings. Does have left forearm graft harvesting site cellulitis for which he is on doxycycline. Patient oxygen saturation around 93% on room air, placed on 2 L oxygen just for comfort. (RICO GOLDEN) Allergies/Adverse Reactions: linagliptin [From Tradjenta] Allergy (Verified 10/05/23 16:31) lisinopril Allergy (Verified 10/05/23 16:31) esomeprazole [From Nexium] Adverse Reaction (Verified 10/05/23 16:31) Diarrhea metformin Adverse Reaction (Verified 10/05/23 16:31) Diarrhea omeprazole Adverse Reaction (Verified 10/05/23 16:31) Diarrhea Home Medications: Tamsulosin HCl 0.4 mg [Flomax 0.4 MG] 0.4 mg PO HS 10/30/20 [History] Insulin Glargine,Hum.rec.anlog [Katlyn Soria] 50 units SQ DAILY 11/03/20 [History] Amlodipine Besylate [Norvasc] 1 tab PO DAILY 10/05/23 [History] Aspirin EC 81 mg [Ecotrin 81 mg] 1 tab PO DAILY 10/05/23 [History] Clopidogrel Bisulfate [PLAVIX Tablet] 1 tab PO DAILY 10/05/23 [History] Doxycycline Hyclate 100 mg [Vibramycin 100 MG] 1 cap PO BID 10/05/23 [History] Dulaglutide [Trulicity] 0.75 mg SQ WEEKLY 10/05/23 [History] Furosemide [Lasix] 1 tab PO DAILY 10/05/23 [History] Insulin Lispro [Humalog Kwikpen U-100] 15 units SQ TIDWMEALS 10/05/23 [History] Iron Polysaccharide Complex [Polysaccharide Iron] 1 cap PO BID 10/05/23 [History] Metoprolol Tartrate 25 mg [Lopressor 25MG Tab] 0.5 tab PO BID 10/05/23 [History] Potassium Chloride 1 tab PO DAILY 10/05/23 [History] Rosuvastatin Calcium 1 tab PO DAILY 10/05/23 [History] Tramadol HCl 50 mg [Ultram 50 mg] 1 tab PO Q6H PRN PRN 10/05/23 [History] Valsartan 160 mg PO DAILY 10/05/23 [History] hydrOXYzine HCL [Hydroxyzine HCl] 25 mg PO HS 10/05/23 [History] - Review of Systems Constitutional: Fever, Chills, Fatigue, Weakness Eyes: No Symptoms Ears, Nose, & Throat: Nose Congestion, Throat Swelling Respiratory: Cough, Dyspnea, Dyspnea on Exertion (MAYER), Wheezing Cardiac: No Symptoms Abdominal/Gastrointestinal: No Symptoms Genitourinary Symptoms: No Symptoms Musculoskeletal: No Symptoms Skin: Rash Neurological: No Symptoms Psychological: No Symptoms Hematologic/Lymphatic: No Symptoms Immunological/Allergic: No Symptoms <RICO GOLDEN - Last Filed: 10/05/23 18:44> - Past Medical History Pertinent Past Medical History: Yes Neurological History: Stroke, Other ENT History: No Pertinent History Cardiac History: Coronary Artery Disease, Hypertension Respiratory History: No Pertinent History Endocrine Medical History: Diabetes Type II Musculoskeletal History: No Pertinent History GI Medical History: Diverticulosis, GERD History: No Pertinent History Psycho-Social History: No Pertinent History Male Reproductive Disorders: Prostate Problems Other Medical History: hx of stroke in college. states lt eye problems from htn and is getting injections lt eye. Nutrition Partner from [place]: Dr. 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 CABG Surgeon from [place]: Dr. Zamora - Social History Smoking Status: Never smoker Exposure to second hand smoke: No Drug Use: none Patient Lives Alone: No <RICO GOLDEN - Last Filed: 10/05/23 18:44> - Physical Exam General Appearance: no apparent distress, alert Eye Exam: PERRL/EOMI Ears, Nose, Throat Exam: hearing grossly normal, pharyngeal erythema Neck Exam: normal inspection, non-tender, supple, full range of motion Respiratory Exam: diminished breath sounds, accessory muscle use Cardiovascular/Chest Exam: normal heart sounds, regular rate/rhythm Abdominal/Gastrointestinal Exam: soft, normal bowel sounds, No tenderness Extremity Exam: non-tender, normal range of motion Neurologic Exam: alert, oriented x 3, cooperative Skin Exam: normal color SpO2 Interpretation: O2 applied SpO2: 95 O2 Delivery: Nasal Cannula <RICO GOLDEN - Last Filed: 10/05/23 18:44> - Nursing Vital Signs Nursing Vital Signs: Initial Vital Signs Temperature 102.3 F 10/05/23 16:22 Pulse Rate 93 H 10/05/23 16:22 Respiratory Rate 18 10/05/23 16:22 Blood Pressure 195/67 10/05/23 16:22 O2 Sat by Pulse Oximetry 98 10/05/23 16:22 Pain Scale Pain Intensity 0 - Course EKG Interpreted by Me: RATE (84), Sinus Rhythm, NORMAL AXIS, Right Bundle Branch Block, Non-specific ST Changes <RICO GOLDEN - Last Filed: 10/05/23 18:44> Ordered Tests: Active Orders 24 hr Category Date Time Status Expanding Machine Operator STAT Care 10/05/23 16:59 Active EKG-ER Only STAT Care 10/05/23 16:58 Active IV Insertion STAT Care 10/05/23 16:58 Active Oxygen-ED Only Nasal Cannula 2 lpm Care 10/05/23 16:58 Active CHEST 1 VIEW (PORTABLE) Stat Exams 10/05/23 16:59 Completed CHEST WITH CONTRAST [CT] Stat Exams 10/05/23 18:11 Completed BLOOD CULTURE Stat Lab 10/05/23 17:30 Received CBC W DIFF Stat Lab 10/05/23 17:25 Completed CMP Stat Lab 10/05/23 17:25 Completed D-DIMER QUANTITATIVE Stat Lab 10/05/23 17:25 Completed Lactic Acid Stat Lab 10/05/23 17:35 Completed Lactic Acid Stat Lab 10/05/23 19:39 Completed MAGNESIUM Stat Lab 10/05/23 17:25 Completed Manual Differential NC Stat Lab 10/05/23 17:25 Completed NT PRO BNPII Stat Lab 10/05/23 17:25 Completed POCT GLUCOSE Stat Lab 10/05/23 16:40 Completed PROCALCITONIN Stat Lab 10/05/23 17:25 Completed TROPONIN Q4H Lab 10/05/23 17:25 Completed TROPONIN Q4H Lab 10/05/23 21:22 Completed UA W/RFX UR CULTURE Stat Lab 10/05/23 17:02 Completed Respiratory Therapy Assessment DAILY RT 10/05/23 17:48 Active Medication Summary Discontinued Medications Generic Name Dose Route Start Last Admin Trade Name Freq PRN Reason Stop Dose Admin Acetaminophen 975 mg 10/05/23 17:00 10/05/23 17:10 Acetaminophen 325 Mg Tablet PO 10/05/23 17:01 975 mg STAT STA Administration Acetaminophen Confirm 10/05/23 17:08 Acetaminophen 325 Mg Tablet Administered 10/05/23 17:09 Dose 975 mg .ROUTE .STK-MED ONE Albuterol/Ipratropium 3 ml 10/05/23 16:58 10/05/23 17:25 Ipratropium/Albuterol Sulfate 3 Ml Ampul.Neb IH 10/05/23 16:59 3 ml STAT ONE Administration Albuterol/Ipratropium Confirm 10/05/23 17:23 Ipratropium/Albuterol Sulfate 3 Ml Ampul.Neb Administered 10/05/23 17:24 Dose 3 ml IH .STK-MED ONE Piperacillin Sod/Tazobactam 100 mls @ 200 mls/hr 10/05/23 18:10 10/05/23 18:56 Sod 3.375 gm/ Sodium Chloride IV 10/05/23 18:39 200 mls/hr STAT ONE Administration Levofloxacin/Dextrose 750 mg in 150 mls @ 100 mls/hr 10/05/23 18:10 10/05/23 23:16 Levofloxacin 750mg/150ml D5w IV 10/05/23 19:39 Infused STAT STA Infusion Sodium Chloride Confirm 10/05/23 18:55 Sodium Chloride 100ml Mini-Bag Plus Administered 10/05/23 18:56 Dose 100 mls @ ud IV .STK-MED ONE Levofloxacin/Dextrose Confirm 10/05/23 19:27 Levofloxacin 750mg/150ml D5w Administered 10/05/23 19:28 Dose 750 mg in 150 mls @ ud IV .STK-MED ONE Sodium Chloride 1,000 mls @ 100 mls/hr 10/05/23 20:30 10/05/23 21:36 Sodium Chloride 0.9% 1000 Ml IV 11/04/23 20:29 100 mls/hr .Q10H [place] Administration Sodium Chloride Confirm 10/05/23 21:25 Sodium Chloride 0.9% 1000 Ml Administered 10/05/23 21:26 Dose 1,000 mls @ ud .ROUTE .STK-MED ONE Lorazepam 1 mg 10/05/23 17:16 10/05/23 17:22 Lorazepam 1 Mg Tablet PO 10/05/23 17:17 1 mg STAT ONE Administration Lorazepam Confirm 10/05/23 17:21 Lorazepam 1 Mg Tablet Administered 10/05/23 17:22 Dose 1 mg .ROUTE .STK-MED ONE Lorazepam 0.5 mg 10/05/23 23:34 10/05/23 23:42 Lorazepam 2 Mg/1 Ml 2 Mg Vial IV 10/05/23 23:35 0.5 mg 1XONLY ONE Administration Lorazepam Confirm 10/05/23 23:40 Lorazepam 2 Mg/1 Ml 2 Mg Vial Administered 10/05/23 23:41 Dose 2 mg .ROUTE .STK-MED ONE Piperacillin Sod/Tazobactam Sod Confirm 10/05/23 18:55 Piperacillin/Tazobactam Sodium 3.375 Gm Vial Administered 10/05/23 18:56 Dose 3.375 gm IV .STK-MED ONE Lab/Rad Data: Laboratory Result Diagrams 10/05/23 17:25 10/05/23 17:25 Laboratory Results 10/05/23 10/05/23 10/05/23 Range/Units 21:22 19:39 17:35 WBC (4.0-10.5) x10^3/uL RBC (4.1-5.6) x10^6/uL Hgb (12.5-18.0) g/dL Hct (42-50) % MCV (78-100) fL MCH (26-32) pg MCHC (32-36) g/dL RDW (11.5-14.0) % Plt Count (150-450) x10^3/uL MPV (7.5-11.0) fL Segmented Neutrophils (36.-66.) % Band Neutrophils (0.0-2.0) % Lymphocytes (Manual) (24-44) % Monocytes (Manual) (0.0-12.0) % Toxic Granulation Platelet Estimate (NORMAL) RBC Morphology Polychromasia Anisocytosis Macrocytosis D-Dimer (0.0-0.50) mg/L Sodium (135-145) mmol/L Potassium (3.5-5.1) mmol/L Chloride (98-107) mmol/L Carbon Dioxide (22-30) mmol/L Anion Gap (5-15) MEQ/L BUN (9-20) mg/dL Creatinine (0.66-1.25) mg/dL Estimated GFR ML/MIN Glucose (74-106) mg/dL POC Glucometer (74 to 106) mg/dL Lactic Acid 2.2 H 2.4 H (0.4-2.0) Calcium (8.4-10.2) mg/dL Magnesium (1.6-2.3) mg/dL Total Bilirubin (0.2-1.3) mg/dL AST (17-59) U/L ALT (0-50) U/L Alkaline Phosphatase (38-126) U/L Troponin I 0.165 H* (0.000-0.034) ng/mL NT-Pro-B Natriuret Pep (<300) pg/mL Serum Total Protein (6.3-8.2) g/dL Albumin (3.5-5.0) g/dL Procalcitonin (0.030-0.080) ng/mL Urine Color (Yellow) Urine Appearance (Clear) Urine pH (4.6-8.0) Ur Specific [place] (1.005-1.030) Urine Protein (Negative) Urine Glucose (UA) (Negative) mg/dL Urine Ketones (Negative) Urine Blood (Negative) Urine Nitrite (Negative) Urine Bilirubin (Negative) Urine Urobilinogen (0.2) mg/dL Ur Leukocyte Esterase (Negative) U Hyaline Cast (Auto) (0-2) /LPF Urine Microscopic RBC (0-5) /HPF Urine Microscopic WBC (0-5) /HPF Ur Epithelial Cells (None Seen) /HPF Urine Bacteria (None Seen) /HPF Urine Culture Reflexed (NO) Influenza Type A Ag (NEGATIVE) Influenza Type B Ag (NEGATIVE) RSV (PCR) (NEGATIVE) SARS-CoV-2 (PCR) (NEGATIVE) 10/05/23 10/05/23 10/05/23 Range/Units 17:30 17:25 17:25 WBC (4.0-10.5) x10^3/uL RBC (4.1-5.6) x10^6/uL Hgb (12.5-18.0) g/dL Hct (42-50) % MCV (78-100) fL MCH (26-32) pg MCHC (32-36) g/dL RDW (11.5-14.0) % Plt Count (150-450) x10^3/uL MPV (7.5-11.0) fL Segmented Neutrophils (36.-66.) % Band Neutrophils (0.0-2.0) % Lymphocytes (Manual) (24-44) % Monocytes (Manual) (0.0-12.0) % Toxic Granulation Platelet Estimate (NORMAL) RBC Morphology Polychromasia Anisocytosis Macrocytosis D-Dimer 16.72 H* (0.0-0.50) mg/L Sodium (135-145) mmol/L Potassium (3.5-5.1) mmol/L Chloride (98-107) mmol/L Carbon Dioxide (22-30) mmol/L Anion Gap (5-15) MEQ/L BUN (9-20) mg/dL Creatinine (0.66-1.25) mg/dL Estimated GFR ML/MIN Glucose (74-106) mg/dL POC Glucometer (74 to 106) mg/dL Lactic Acid (0.4-2.0) Calcium (8.4-10.2) mg/dL Magnesium (1.6-2.3) mg/dL Total Bilirubin (0.2-1.3) mg/dL AST (17-59) U/L ALT (0-50) U/L Alkaline Phosphatase (38-126) U/L Troponin I 0.155 H* (0.000-0.034) ng/mL NT-Pro-B Natriuret Pep (<300) pg/mL Serum Total Protein (6.3-8.2) g/dL Albumin (3.5-5.0) g/dL Procalcitonin (0.030-0.080) ng/mL Urine Color (Yellow) Urine Appearance (Clear) Urine pH (4.6-8.0) Ur Specific [place] (1.005-1.030) Urine Protein (Negative) Urine Glucose (UA) (Negative) mg/dL Urine Ketones (Negative) Urine Blood (Negative) Urine Nitrite (Negative) Urine Bilirubin (Negative) Urine Urobilinogen (0.2) mg/dL Ur Leukocyte Esterase (Negative) U Hyaline Cast (Auto) (0-2) /LPF Urine Microscopic RBC (0-5) /HPF Urine Microscopic WBC (0-5) /HPF Ur Epithelial Cells (None Seen) /HPF Urine Bacteria (None Seen) /HPF Urine Culture Reflexed (NO) Influenza Type A Ag NEGATIVE (NEGATIVE) Influenza Type B Ag NEGATIVE (NEGATIVE) RSV (PCR) NEGATIVE (NEGATIVE) SARS-CoV-2 (PCR) NEGATIVE (NEGATIVE) 10/05/23 10/05/23 10/05/23 Range/Units 17:25 17:25 17:02 WBC 22.2 H (4.0-10.5) x10^3/uL RBC 4.15 (4.1-5.6) x10^6/uL Hgb 13.2 (12.5-18.0) g/dL Hct 39.5 L (42-50) % MCV 95.2 (78-100) fL MCH 31.8 (26-32) pg MCHC 33.4 (32-36) g/dL RDW 13.5 (11.5-14.0) % Plt Count 550 H (150-450) x10^3/uL MPV 8.8 (7.5-11.0) fL Segmented Neutrophils 92 H (36.-66.) % Band Neutrophils 5 H (0.0-2.0) % Lymphocytes (Manual) 1 L (24-44) % Monocytes (Manual) 2 (0.0-12.0) % Toxic Granulation 2+ Platelet Estimate INCREASED (NORMAL) RBC Morphology ABNORMAL Polychromasia 1+ Anisocytosis 2+ Macrocytosis 1+ D-Dimer (0.0-0.50) mg/L Sodium 136 (135-145) mmol/L Potassium 4.7 (3.5-5.1) mmol/L Chloride 100 (98-107) mmol/L Carbon Dioxide 20 L (22-30) mmol/L Anion Gap 19.8 H (5-15) MEQ/L BUN 18 (9-20) mg/dL Creatinine 1.16 (0.66-1.25) mg/dL Estimated GFR 68.2 ML/MIN Glucose 325 H (74-106) mg/dL POC Glucometer (74 to 106) mg/dL Lactic Acid (0.4-2.0) Calcium 9.7 (8.4-10.2) mg/dL Magnesium 1.9 (1.6-2.3) mg/dL Total Bilirubin 1.20 (0.2-1.3) mg/dL AST 40 (17-59) U/L ALT 47 (0-50) U/L Alkaline Phosphatase 45 (38-126) U/L Troponin I (0.000-0.034) ng/mL NT-Pro-B Natriuret Pep 1230 (<300) pg/mL Serum Total Protein 8.1 (6.3-8.2) g/dL Albumin 4.2 (3.5-5.0) g/dL Procalcitonin 2.890 H* (0.030-0.080) ng/mL Urine Color Yellow (Yellow) Urine Appearance Clear (Clear) Urine pH 6.0 (4.6-8.0) Ur Specific [place] 1.020 (1.005-1.030) Urine Protein Negative (Negative) Urine Glucose (UA) >=1000 A (Negative) mg/dL Urine Ketones Trace A (Negative) Urine Blood Negative (Negative) Urine Nitrite Negative (Negative) Urine Bilirubin Negative (Negative) Urine Urobilinogen 1.0 A (0.2) mg/dL Ur Leukocyte Esterase Negative (Negative) U Hyaline Cast (Auto) NONE SEEN (0-2) /LPF Urine Microscopic RBC 0-2 (0-5) /HPF Urine Microscopic WBC 0-2 (0-5) /HPF Ur Epithelial Cells None Seen (None Seen) /HPF Urine Bacteria None Seen (None Seen) /HPF Urine Culture Reflexed NO (NO) Influenza Type A Ag (NEGATIVE) Influenza Type B Ag (NEGATIVE) RSV (PCR) (NEGATIVE) SARS-CoV-2 (PCR) (NEGATIVE) 10/05/23 Range/Units 16:40 WBC (4.0-10.5) x10^3/uL RBC (4.1-5.6) x10^6/uL Hgb (12.5-18.0) g/dL Hct (42-50) % MCV (78-100) fL MCH (26-32) pg MCHC (32-36) g/dL RDW (11.5-14.0) % Plt Count (150-450) x10^3/uL MPV (7.5-11.0) fL Segmented Neutrophils (36.-66.) % Band Neutrophils (0.0-2.0) % Lymphocytes (Manual) (24-44) % Monocytes (Manual) (0.0-12.0) % Toxic Granulation Platelet Estimate (NORMAL) RBC Morphology Polychromasia Anisocytosis Macrocytosis D-Dimer (0.0-0.50) mg/L Sodium (135-145) mmol/L Potassium (3.5-5.1) mmol/L Chloride (98-107) mmol/L Carbon Dioxide (22-30) mmol/L Anion Gap (5-15) MEQ/L BUN (9-20) mg/dL Creatinine (0.66-1.25) mg/dL Estimated GFR ML/MIN Glucose (74-106) mg/dL POC Glucometer 346 H (74 to 106) mg/dL Lactic Acid (0.4-2.0) Calcium (8.4-10.2) mg/dL Magnesium (1.6-2.3) mg/dL Total Bilirubin (0.2-1.3) mg/dL AST (17-59) U/L ALT (0-50) U/L Alkaline Phosphatase (38-126) U/L Troponin I (0.000-0.034) ng/mL NT-Pro-B Natriuret Pep (<300) pg/mL Serum Total Protein (6.3-8.2) g/dL Albumin (3.5-5.0) g/dL Procalcitonin (0.030-0.080) ng/mL Urine Color (Yellow) Urine Appearance (Clear) Urine pH (4.6-8.0) Ur Specific [place] (1.005-1.030) Urine Protein (Negative) Urine Glucose (UA) (Negative) mg/dL Urine Ketones (Negative) Urine Blood (Negative) Urine Nitrite (Negative) Urine Bilirubin (Negative) Urine Urobilinogen (0.2) mg/dL Ur Leukocyte Esterase (Negative) U Hyaline Cast (Auto) (0-2) /LPF Urine Microscopic RBC (0-5) /HPF Urine Microscopic WBC (0-5) /HPF Ur Epithelial Cells (None Seen) /HPF Urine Bacteria (None Seen) /HPF Urine Culture Reflexed (NO) Influenza Type A Ag (NEGATIVE) Influenza Type B Ag (NEGATIVE) RSV (PCR) (NEGATIVE) SARS-CoV-2 (PCR) (NEGATIVE) - Progress Progress: improved, re-examined Air Movement: fair Blood Culture(s) Obtained: Yes Antibiotics given: Yes Counseled pt/family regarding: lab results, diagnosis, rad results <RICO GOLDEN - Last Filed: 10/05/23 18:44> - Progress Progress: re-examined Air Movement: good Blood Culture(s) Obtained: Yes Antibiotics given: Yes Will see patient in: hospital (full admit) (transfer to [facility]) <NADEGE CAMARENA - Last Filed: 10/06/23 00:00> - Progress Progress Note: 10/05/23 18:56 68-year-old is evaluated in the ER for increasing shortness of breath with a background of recent CABG. Patient is on doxycycline for left forearm cellulitis. He also has a temperature of 102. He is given Tylenol and DuoNeb, on reevaluation is feeling better. Patient was very anxious and given a dose of oral Ativan and he is much more relaxed. He is maintaining oxygen saturation around 95% on room air. Workup showed white count of 22, lactate of 2.4 and procalcitonin of 2.8. Patient chemistries fairly unremarkable otherwise. Has a troponin of 0.15. Chest x-ray did not show any acute cardiopulmonary findings reviewed by me, official report is pending. Patient is given a dose of Zosyn and Levaquin. I do not think his source of sepsis is his forearm but more of a pulmonary etiology. Has a negative COVID and flu/RSV. EKG did not show any acute ST elevations and elevation in troponin is secondary to recent surgery. He is chest pain-free. Has elevated D-dimer and CTA is ordered. Care is transferred to Dr. Mccullough at change of my shift for reevaluation and final disposition. (RICO GOLDEN) 10/05/23 19:50 I took over care for pt from Dr Golden at 1900 I spoke w/ Yael - CT surgery PA taking call for Dr Swift (CT surgery at [facility]), she states Dr Swift is willing to accept will organize tranpsort at this time 10/06/23 00:00 Pt transported out of ED by [facility] staff (NADEGE CAMARENA) Medical Desision Making - Discussion of managment Care discussed with:: on-call "doc" Reviewed:: Test results, Need for additional workup Agreed on:: decision to admit (transfer to [facility] - admitting physician Dr Swift) Will see patient: in hospital - Diagnostic Testing Diagnostic test were ordered, analyzed, and reviewed by me: Yes Radiological Interpretation: Reviewed by me, Teleradiologist Report - Risk of complications The pt has a high risk of morbidity or mortality based on: Decision regarding hospitilization or escalation of hosp level of care <NADEGE CAMARENA - Last Filed: 10/06/23 00:00> <RICO GOLDEN - Last Filed: 10/05/23 18:44> - Departure Critical Care Time: No <NADEGE CAMARENA - Last Filed: 10/06/23 00:00> - Departure Clinical Impression: Sepsis Qualifiers: Sepsis type: sepsis due to unspecified organism Sepsis acute organ dysfunction status: without acute organ dysfunction Qualified Code(s): A41.9 - Sepsis, unspecified organism Pneumonia Qualifiers: Pneumonia type: due to unspecified organism Laterality: bilateral Lung location: lower lobe of lung Qualified Code(s): J18.9 - Pneumonia, unspecified organism Condition: Stable Referrals: SAL MAN, [employer] [Primary Care Provider] - Follow up/PCP as directed
[2023-10-05] MEDS ORDERED: TYLENOL 325 MG ONE (17:08)
[2023-10-05] MEDS: TYLENOL 325 MG PO STA (17:10)
[2023-10-05 17:20] LABS: Appearance Clear (Clear); Bacteria None Seen /HPF (None Seen); Bilirubin Negative (Negative); Blood Negative (Negative); Epithelial Cells None Seen /HPF (None Seen); Glucose, Urine >=1000 mg/dL (Negative); Hyaline Casts NONE SEEN /LPF (0-2); Ketones Trace (Negative); Leukocyte Esterase Negative (Negative); Nitrite Negative (Negative); Protein,Urine Dip Negative (Negative); RBC 0-2 /HPF (0-5); WBC 0-2 /HPF (0-5)
[2023-10-05] MEDS ORDERED: Ativan 1 MG ONE (17:21)
[2023-10-05] MEDS: Ativan 1 MG PO ONE (17:22)
[2023-10-05] MEDS ORDERED: DUONEB 0.5-3 MG/3 ml Neb IH ONE (17:23)
[2023-10-05] MEDS: DUONEB 0.5-3 MG/3 ml Neb IH ONE (17:25)
[2023-10-05 17:36] LABS: ADD URINE CULTURE? NO (NO)
[2023-10-05 17:39] LABS: Hematocrit 39.5 % (42-50); Hemoglobin 13.2 g/dL (12.5-18.0); Mean Cell Volume 95.2 fL (78-100); Mean Corpuscular Hemoglobin 31.8 pg (26-32); Mean Corpuscular Hgb Concent. 33.4 g/dL (32-36); Mean Platelet Volume 8.8 fL (7.5-11.0); Platelet Count 550 x10^3/uL (150-450); Red Blood Count 4.15 x10^6/uL (4.1-5.6); Red Cell Distribution Width 13.5 % (11.5-14.0); White Blood Count 22.2 x10^3/uL (4.0-10.5)
[2023-10-05 17:54] VITALS: TEMP 100.7
[2023-10-05 18:12] LABS: ALBUMIN 4.2 g/dL (3.5-5.0); ANION GAP 19.8 MEQ/L (5-15); BILIRUBIN,TOTAL 1.2 mg/dL (0.2-1.3); Calcium 9.7 mg/dL (8.4-10.2); Creatinine 1 1.16 mg/dL (0.66-1.25); EST GLOMERULAR FILTRATION RATE 68.2 ML/MIN; MAGNESIUM 1.9 mg/dL (1.6-2.3); Potassium 4.7 mmol/L (3.5-5.1); Total Protein 8.1 g/dL (6.3-8.2)
[2023-10-05 18:15] LABS: PROCALCITONIN 2.89 ng/mL (0.030-0.080)
[2023-10-05 18:18] LABS: INFLUENZA A NEGATIVE (NEGATIVE); INFLUENZA B NEGATIVE (NEGATIVE); RESPIRATORY SYNCTIAL VIRUS NEGATIVE (NEGATIVE); SARS-CoV-2 Xpert Express NEGATIVE (NEGATIVE)
[2023-10-05 18:52] LABS: BAND 5 % (0.0-2.0); Lymphocytes 1 % (24-44); Monocyte 2 % (0.0-12.0); Neutrophils 92 % (36.-66.); Total Cells Counted 100
[2023-10-05] MEDS ORDERED: PIPERACILLIN/TAZOBACTAM IV ONE (18:55)
[2023-10-05] MEDS ORDERED: Sodium Chloride 100ML MINI-BAG PLUS 100 ML IV ONE (18:55)
[2023-10-05] MEDS: PIPERACILLIN/TAZOBACTAM 3.375 GM in Sodium Chloride 100ML MINI-BAG PLUS 100 ML IV ONE (18:56)
[2023-10-05 18:58] LABS: ANISOCYTOSIS 2+; Macrocytosis 1+; Platelet Estimate INCREASED (NORMAL); Polychromasia 1+
[2023-10-05 19:04] LABS: Toxic Granulation 2+
--- NOTE | 2023-10-05 19:09 | XRAY ---
Indication: Postop fever. Status post CABG. Comparison: November 03, 2020 Portable chest demonstrates new mild bibasilar infiltrates/atelectasis. Heart not enlarged with interval CABG. Bony thorax intact again with osteopenia and mild degenerative changes.
[2023-10-05] MEDS ORDERED: LEVOFLOXACIN 750MG/150ML D5W 750 MG/150 ML BAG IV ONE (19:27)
[2023-10-05] MEDS: LEVOFLOXACIN 750MG/150ML D5W 750 MG/150 ML BAG IV STA (19:30)
--- NOTE | 2023-10-05 19:31 | XRAY ---
CLINICAL HISTORY: sob, PE? TECHNIQUE: Contiguous axial CT images of the chest were acquired with the administration of intravenous contrast. Coronal and sagittal reconstructions were obtained. One of the following dose reduction techniques were utilized for this exam: Automated exposure control, adjustment of the mA and/or kV according to patient size, use of iterative reconstruction. 100 CC of Isovue 370 was given as an IV contrast. COMPARISON: None FINDINGS: There is bilateral minimal pleural effusion with adjacent compressional atelectasis. There are also peribronchial increased densities within the left lower lobe and right middle lobe. Sternotomy wires and postoperative changes are noted. A few small right tracheobronchial calcified lymph nodes are noted The heart, great vessels, trachea and oesophagus have a normal appearance. There is no lymphadenopathy. The pulmonary vessels and bronchi are normal. The pleural spaces are clear. The upper abdominal solid organs and bowel have a normal arterial phase appearance within the field of view. No bony abnormality is identified. No evidence of pulmonary embolism on either side. IMPRESSION: 1. No evidence of pulmonary embolism 2. Bilateral minimal pleural effusion with adjacent compressional atelectasis. 3. Peribronchial increased densities within the left lower and right middle lobe may represent early infectious process for clinical correlation. Electronically Signed by: Maldonado Scott MD. (10/05/2023 19:27:40 EDT)
[2023-10-05] MEDS ORDERED: Sodium Chloride 0.9% 1000 ML 1,000 ML ONE (21:25)
[2023-10-05] MEDS: Sodium Chloride 0.9% 1000 ML 1,000 ML IV SCH (21:36)
[2023-10-05] MEDS ORDERED: Ativan 2 MG/1 ML VIAL ONE (23:40)
[2023-10-05] MEDS: Ativan 2 MG/1 ML VIAL IV ONE (23:42)
[2023-10-05 23:52] VITALS: BP 144/70; PULSE 70; RESP 16; O2SAT 97
== END 2023-10-05 23:50 | disposition short-term general hospital (02) ==
LOC: ED 16:22
DX: A41.9 Sepsis, unspecified organism (principal); J18.9 Pneumonia, unspecified organism; R06.02 Shortness of breath; R79.1 Abnormal coagulation profile; R05.1 Acute cough; R50.9 Fever, unspecified; I10 Essential (primary) hypertension; E78.5 Hyperlipidemia, unspecified; E11.9 Type 2 diabetes mellitus without complications; Z79.4 Long term (current) use of insulin; Z79.02 Long term (current) use of antithrombotics/antiplatelets; Z79.85 Long-term (current) use of injectable non-insulin antidiabetic drugs; Z79.891 Long term (current) use of opiate analgesic; Z79.899 Other long term (current) drug therapy
CPT/HCPCS: 0241U; 36000; 36415; 71045; 71260; 80053; 81001; 82947; 83605; 83735; 83880; 84145; 84484; 85025; 85379; 87040; 93005; 93041; 94640; 96360; 96365; 96374; 99285; J1956; J2060; A9270-GY